=== PATIENT | male | born 1970 | race Hispanic/Latino ===

== ENCOUNTER 2017-08-20 13:50 | Emergency (ER) | payer OTHER | END 2017-08-20 14:53 | disposition home or self-care (01) | LOC: EDH 13:50 | DX: S46.812A Strain of other muscles, fascia and tendons at shoulder and upper arm level, left arm, initial encounter (principal); Z72.0 Tobacco use; W00.0XXA Fall on same level due to ice and snow, initial encounter; Y93.01 Activity, walking, marching and hiking; Y92.098 Other place in other non-institutional residence as the place of occurrence of the external cause; Y99.8 Other external cause status | CPT/HCPCS: 99281 ==

== ENCOUNTER 2017-09-23 10:43 | Emergency (ER) | payer OTHER ==
[2017-09-23] MEDS ORDERED: KETOROLAC TROMETHAMINE 60 MG/2 ML VIAL ONE (11:33)
[2017-09-23] MEDS ORDERED: DEXAMETHASONE SOD PHOSPHATE 10MG/ML 1ML VIAL ONE (11:33)
[2017-09-23] MEDS ORDERED: MORPHINE SULFATE 4 MG/1ML SYG ONE (13:11)
[2017-09-23] MEDS ORDERED: MORPHINE SULFATE 2 MG/ML 1ML SYG ONE (13:11)
== END 2017-09-23 14:09 | disposition home or self-care (01) ==
LOC: EDH 10:43
DX: M62.830 Muscle spasm of back (principal); M54.5 Low back pain; Z72.0 Tobacco use
CPT/HCPCS: 72100; 96372 ×3; 99284; J1100; J1885; J2270

== ENCOUNTER → 2018-04-14 | Outpatient (CLI) | payer OTHER | END | disposition home or self-care (01) | LOC: OIH 10:42 | PROVIDERS: ATTEND Internal Medicine | DX: S43.005A Unspecified dislocation of left shoulder joint, initial encounter (principal) | CPT/HCPCS: 73030 ==

== ENCOUNTER 2020-05-29 22:25 | Inpatient (IN) | payer OTHER ==
[~2020-05-29] VITALS: Ht 170.2 cm; Wt 104.3 kg
[2020-05-29] MEDS ORDERED: KETOROLAC TROMETHAMINE 30MG/ML ONE (22:56)
[2020-05-29] MEDS ORDERED: ZOSYN 3.375GM+NS 50ML 50 ML IV ONE (22:56)
[2020-05-29] MEDS ORDERED: LACTATED RINGERS 1000ML 1,000 ML IV ONE (22:56)
[2020-05-29] MEDS ORDERED: ONDANSETRON HCL 4 MG/2 ML VIAL ONE (22:59)
[2020-05-29 23:25] LABS: BASOPHILS % (AUTO) 0.8 % (0.0-5.0); EOSINOPHILS % (AUTO) 1.9 % (0.0-8.0); MEAN CORPUSCULAR HEMOGLOBIN 28.6 pg (27.0-33.0); MEAN CORPUSCULAR HGB CONC 33.8 g/dL (32.0-36.0); MEAN CORPUSCULAR VOLUME 84.7 fL (79-99); NEUTROPHILS % (AUTO) 73.8 % (40.0-77.0); PLATELET COUNT (AUTO) 416 K/uL (130-400); RED BLOOD CELL COUNT(AUTO) 5.31 MIL/uL (4.50-6.20); RED CELL DISTRIBUTION WIDTH 15.9 % (11.0-15.5); WHITE BLOOD COUNT (AUTO) 21.3 K/uL (4.8-10.8)
[2020-05-29 23:50] LABS: CREATININE 0.9 mg/dL (0.5-1.5); POTASSIUM 4.1 mmol/L (3.5-5.1)
[2020-05-29 23:51] LABS: APPEARANCE,URINE Clear (CLEAR); BILIRUBIN,URINE Negative (NEGATIVE); COLOR,URINE Yellow (YELLOW); GLUCOSE, URINE (UA) Negative (NEGATIVE); KETONES,URINE Negative (NEGATIVE); LEUKOCYTE ESTERASE ,URINE Negative (NEGATIVE); NITRATE,URINE Negative (NEGATIVE); OCCULT BLOOD,URINE Negative (NEGATIVE); PH,URINE 6.5 (5.0-8.0); PROTEIN,URINE POS 2+ mg/dL (NEGATIVE)
[2020-05-29 23:55] LABS: ALBUMIN 3.2 g/dL (3.5-5.0); BILIRUBIN,TOTAL 0.4 mg/dL (0.2-1.0); TOTAL PROTEIN, SERUM 7.3 g/dL (6.0-8.3)
[2020-05-30 00:01] LABS: BACTERIA,URINE None Seen /HPF (None Seen); RBC,URINE None Seen /HPF (0-1); SQUAMOUS EPITHELIAL CELL,UR Rare /HPF (0-2); WBC,URINE None Seen /HPF (0-1)
[2020-05-30] MEDS ORDERED: LIDOCAINE HCL 1% 20 ML VIAL ONE (00:39)
[2020-05-30] MEDS ORDERED: MORPHINE SULFATE 4 MG/1ML SYG ONE ×2 (00:39→05:11)
[2020-05-30] MEDS ORDERED: VANCOMYCIN 1GM+NS 250ML 250 ML IV ONE (01:54)
[2020-05-30] MEDS ORDERED: ACETAMINOPHEN EXTRA STRENGTH 500 MG TABLET ONE (01:54)
[2020-05-30] MEDS ORDERED: VANCOMYCIN PROTOCOL PER PHARMACY IV SCH (05:00)
[2020-05-30] MEDS ORDERED: ONDANSETRON HCL 4 MG/2 ML VIAL ONE (05:11)
[2020-05-30] MEDS ORDERED: ZOSYN 3.375GM+NS 50ML 50 ML IV SCH (06:00)
[2020-05-30] MEDS ORDERED: ZOSYN 3.375GM+NS 50ML 50 ML IV ONE (07:30)
[2020-05-30 08:56] LABS: BASOPHILS % (AUTO) 0.9 % (0.0-5.0); EOSINOPHILS % (AUTO) 2.2 % (0.0-8.0); HEMATOCRIT 42.3 % (42-54); LYMPHOCYTES % (AUTO) 15.5 % (21.0-51.0); MEAN CORPUSCULAR HEMOGLOBIN 28.7 pg (27.0-33.0); MEAN CORPUSCULAR HGB CONC 33.6 g/dL (32.0-36.0); MEAN CORPUSCULAR VOLUME 85.5 fL (79-99); MONOCYTES % (AUTO) 10.9 % (3.0-13.0); NEUTROPHILS % (AUTO) 69.9 % (40.0-77.0); PLATELET COUNT (AUTO) 399 K/uL (130-400); RED BLOOD CELL COUNT(AUTO) 4.95 MIL/uL (4.50-6.20); WHITE BLOOD COUNT (AUTO) 20.1 K/uL (4.8-10.8)
[2020-05-30 09:08] LABS: ALBUMIN 2.9 g/dL (3.5-5.0); BILIRUBIN,TOTAL 0.8 mg/dL (0.2-1.0); CREATININE 0.9 mg/dL (0.5-1.5); POTASSIUM 3.9 mmol/L (3.5-5.1); TOTAL PROTEIN, SERUM 6.6 g/dL (6.0-8.3)
[2020-05-30 11:20] VITALS: BP 124/89
[2020-05-30] MEDS: MORPHINE SULFATE 4 MG/1ML SYG IVP PRN ×2 (11:33→15:38)
[2020-05-30] MEDS: ONDANSETRON HCL 4 MG/2 ML VIAL IVP PRN ×2 (11:42→17:29)
[2020-05-30] MEDS ORDERED: PNEUMOCOCCAL VACCINE POLYVALENT 0.5 ML/VIAL [PPV] IM ONE (13:30)
[2020-05-30] MEDS ORDERED: FLU VACC QS2020-21(6MOS UP)/PF 60 MCG/0.5 ML ML IM ONE ×2 (13:30→17:20)
[2020-05-30] MEDS ORDERED: COMPOUND IV REFRIGERATED 1 EACH IVSOLN MISC PRN (15:00)
[2020-05-30] MEDS: VANCOMYCIN 1.5 GM in SODIUM CHLORIDE 0.9% 250 ML IV SCH (15:27)
[2020-05-30] MEDS: ZOSYN 3.375GM+NS 50ML 50 ML IV SCH (16:58)
[2020-05-30] MEDS ORDERED: PNEUMOCOCCAL VACCINE POLYVALENT 0.5 ML/VIAL [PPV] ONE (17:20)
[2020-05-30 17:24] VITALS: BP 150/106
[2020-05-30] MEDS ORDERED: MORPHINE SULFATE 2 MG/ML 1ML SYG ONE (18:00)
[2020-05-30] MEDS ORDERED: KETOROLAC TROMETHAMINE 30MG/ML IV SCH (19:00)
[2020-05-30] MEDS ORDERED: MORPHINE SULFATE 2 MG/ML 1ML SYG IVP ONE (19:15)
[2020-05-30 20:00] VITALS: BP 134/83
--- NOTE | 2020-05-30 20:30 | NUR ---
PAIN SHIFT ASSESSMENT DONE, PLEASE REFER TO CHART. DUE PAIN MEDS ADMINISTERED, TOLERATED WELL. PT REQUESTED TO SHOWER. PCP WAS MADE AWARE TO ASSIST PT. WILL RE-ASSESS PT. Addendum: 05/30/20 at 2148 by RAYMOND TURNER RN RN Amended: Links added.
--- NOTE | 2020-05-30 21:15 | NUR ---
PAIN PT IS DONE WITH HIS SHOWER AND CLAIMS OF SCROTAL PAINS AND HYPOGASTRIC PAINS. ASSISTED PT TO THE BED. ELEVATED SCROTUM WITH A ROLLED TOWEL. DRESSING OF GAUZE APPLIED TO ULCER AREA. MEDICATED WITH MORPHINE IV 4MG. WARM PACKS APPLIED TO SCROTAL AREA. WILL RE-ASSESS PT.
[2020-05-30] MEDS: MORPHINE SULFATE 4 MG/1ML SYG IV PRN (21:16)
[2020-05-30] MEDS: KETOROLAC TROMETHAMINE 10 MG TABLET PO SCH (22:57)
[2020-05-30 23:57] VITALS: BP 135/88
[2020-05-31] MEDS: ZOSYN 3.375GM+NS 50ML 50 ML IV SCH ×4 (00:34→23:42)
[2020-05-31] MEDS: VANCOMYCIN 1.5 GM in SODIUM CHLORIDE 0.9% 250 ML IV SCH ×2 (02:00→14:00)
[2020-05-31] MEDS ORDERED: VANCOMYCIN 1GM+NS 250ML 250 ML IV ONE ×2 (02:25→05:22)
--- NOTE | 2020-05-31 02:25 | NUR ---
MEDS PT IS RESTING WELL, FAIRLY ASLEEP. JOURNEYMAN LINEMAN UNABLE TO FIND VANCO DOSE IN THE REFRIGERATORS ON THE FLOOR. VANCO DOSE =1.5GM IV. JOURNEYMAN LINEMAN TRIED TO FIND 500MG VANCO IV TO ADD TO 1GM IV TO COMPLETE DOSE BUT NONE FOUND IN THE HOSPITAL. JOURNEYMAN LINEMAN WILL INFUSE 1 1/2 GM OF HOSPITAL STOCK TO COMPLETE PT DOSE, WASTING 500MG VANCO STOCK.
[2020-05-31 04:00] VITALS: BP 134/82
[2020-05-31] MEDS: KETOROLAC TROMETHAMINE 10 MG TABLET PO SCH ×3 (04:43→16:35)
--- NOTE | 2020-05-31 06:00 | NUR ---
MD DR KHOURY IN TO SEE PT. NEW ORDERS GIVEN, PLEASE REFER TO CPOE. FOR MORE CARE AND MANAGEMENT.
[2020-05-31 08:00] VITALS: BP 149/79
[2020-05-31] MEDS: MORPHINE SULFATE 4 MG/1ML SYG IV PRN ×4 (08:40→23:42)
[2020-05-31] MEDS: ALPRAZOLAM 0.5 MG TABLET PO PRN ×3 (09:00→22:57)
--- NOTE | 2020-05-31 11:06 | NUR ---
RD NOTIFICATION Pt admitted due to left scrotal abscess/cellulitis Pt is currently on a regular diet and consuming 100%. Pt's current BMI is of 36.0 and 155% IBW which are consistent with obesity. Unable to obtain recent weight loss information. Pt has hx of HTN, current BP is of 149/79, pt may benefit from a Heart Healthy modifier. RD RECOMMENDATION: Add modifier of heart healthy to current diet order Monitor PO intake. Pt may benefit from MVI. Dietary will continue to follow. Contact as nutritional concerns arise. LABS: WBC 20.1, NA 134, CL 101, TOT CA 8.2, ALB 2.9, TOT PRO 6.6 Addendum: 05/31/20 at [address] Amended: Links added.
--- NOTE | 2020-05-31 11:46 | NUR ---
[facility] CM DC [employer] Professor met with pt discussed dc plans. Pt is independent prior to admission, lives at home with spouse. Denies any equipment/services. Feels safe to go back home, still drives, spouse able to assist with transportation and needs as necessary. DC plan to home once stable. CM to continue to follow up. Addendum: 05/31/20 at 1147 by RADHA SEWELL LVN Amended: Links added.
[2020-05-31 12:00] VITALS: BP 143/94
[2020-05-31 13:08] LABS: BASOPHILS % (AUTO) 0.8 % (0.0-5.0); EOSINOPHILS % (AUTO) 3.3 % (0.0-8.0); HEMATOCRIT 40.5 % (42-54); LYMPHOCYTES % (AUTO) 17.6 % (21.0-51.0); MEAN CORPUSCULAR HEMOGLOBIN 28.7 pg (27.0-33.0); MEAN CORPUSCULAR HGB CONC 33.3 g/dL (32.0-36.0); MONOCYTES % (AUTO) 8.5 % (3.0-13.0); NEUTROPHILS % (AUTO) 69.4 % (40.0-77.0); PLATELET COUNT (AUTO) 362 K/uL (130-400); RED BLOOD CELL COUNT(AUTO) 4.71 MIL/uL (4.50-6.20); RED CELL DISTRIBUTION WIDTH 15.9 % (11.0-15.5); WHITE BLOOD COUNT (AUTO) 14.4 K/uL (4.8-10.8)
[2020-05-31 16:00] VITALS: BP 149/96
--- NOTE | 2020-05-31 16:41 | NUR ---
[id number] PATIENT SIGNED IM LETTER, I FAXED IM LETTER TO [id number] AND PLACED IN CHART UNDER CONSENT TAB
[2020-05-31 20:00] VITALS: BP 145/90
[2020-06-01] VITALS: BP 121/80
[2020-06-01] MEDS: VANCOMYCIN 1.5 GM in SODIUM CHLORIDE 0.9% 250 ML IV SCH ×2 (02:23→14:22)
[2020-06-01 04:00] VITALS: BP 142/97
[2020-06-01 06:19] LABS: HEMATOCRIT 42.1 % (42-54); MEAN CORPUSCULAR HEMOGLOBIN 28.8 pg (27.0-33.0); MEAN CORPUSCULAR HGB CONC 33.5 g/dL (32.0-36.0); MEAN CORPUSCULAR VOLUME 86.1 fL (79-99); RED BLOOD CELL COUNT(AUTO) 4.89 MIL/uL (4.50-6.20); RED CELL DISTRIBUTION WIDTH 15.9 % (11.0-15.5); WHITE BLOOD COUNT (AUTO) 12.9 K/uL (4.8-10.8)
[2020-06-01 06:33] LABS: CREATININE 0.9 mg/dL (0.5-1.5); POTASSIUM 4.2 mmol/L (3.5-5.1)
[2020-06-01] MEDS: ZOSYN 3.375GM+NS 50ML 50 ML IV SCH ×3 (08:10→23:36)
[2020-06-01] MEDS: MORPHINE SULFATE 4 MG/1ML SYG IV PRN ×4 (08:10→23:47)
[2020-06-01] MEDS: ALPRAZOLAM 0.5 MG TABLET PO PRN ×2 (08:16→20:50)
[2020-06-01 08:37] VITALS: BP 146/101
[2020-06-01 12:15] VITALS: BP 117/71
[2020-06-01] MEDS: ONDANSETRON HCL 4 MG/2 ML VIAL IVP PRN (14:22)
[2020-06-01 19:45] VITALS: BP 135/77
[2020-06-01] MEDS: MORPHINE SULFATE 2 MG/ML 1ML SYG IVP PRN (20:44)
[2020-06-01 23:44] VITALS: BP 146/91
[2020-06-02] MEDS: VANCOMYCIN 1.5 GM in SODIUM CHLORIDE 0.9% 250 ML IV SCH ×2 (02:00→14:23)
[2020-06-02 04:00] VITALS: BP 156/88
[2020-06-02] MEDS: ALPRAZOLAM 0.5 MG TABLET PO PRN ×3 (05:04→21:19)
[2020-06-02 05:53] LABS: BASOPHILS % (AUTO) 0.9 % (0.0-5.0); HEMATOCRIT 42.4 % (42-54); LYMPHOCYTES % (AUTO) 20.9 % (21.0-51.0); MEAN CORPUSCULAR HEMOGLOBIN 28.4 pg (27.0-33.0); MEAN CORPUSCULAR HGB CONC 32.8 g/dL (32.0-36.0); MEAN CORPUSCULAR VOLUME 86.7 fL (79-99); MONOCYTES % (AUTO) 10.9 % (3.0-13.0); NEUTROPHILS % (AUTO) 61.9 % (40.0-77.0); PLATELET COUNT (AUTO) 439 K/uL (130-400); RED BLOOD CELL COUNT(AUTO) 4.89 MIL/uL (4.50-6.20); RED CELL DISTRIBUTION WIDTH 15.7 % (11.0-15.5); WHITE BLOOD COUNT (AUTO) 13.9 K/uL (4.8-10.8)
[2020-06-02 06:19] LABS: ALBUMIN 2.6 g/dL (3.5-5.0); BILIRUBIN,TOTAL 0.4 mg/dL (0.2-1.0); CREATININE 0.9 mg/dL (0.5-1.5); POTASSIUM 4.1 mmol/L (3.5-5.1); TOTAL PROTEIN, SERUM 6.7 g/dL (6.0-8.3)
[2020-06-02] MEDS: ZOSYN 3.375GM+NS 50ML 50 ML IV SCH ×2 (06:53→16:34)
[2020-06-02] MEDS: MORPHINE SULFATE 4 MG/1ML SYG IV PRN ×4 (07:02→20:46)
[2020-06-02 08:00] VITALS: BP 123/65
[2020-06-02 11:00] VITALS: BP 111/70
[2020-06-02 16:00] VITALS: BP 135/80
[2020-06-02 20:00] VITALS: BP 127/90
[2020-06-02] MEDS: VANCOMYCIN 1GM+NS 250ML 250 ML IV SCH (20:46)
--- NOTE | 2020-06-02 20:46 | NUR ---
PAIN Pt medicated with extra Morphine 2 mg iv for c/o of pain to scrotum. Addendum: 06/02/20 at 2339 by SERGIO TINOCO RN RN MORPINE 4 MG WAS GIVEN.
--- NOTE | 2020-06-02 21:19 | NUR ---
ANXIETY Xanax GIVEN for anxiety as per pt request.
--- NOTE | 2020-06-02 23:01 | NUR ---
PAGED MD Susan rich called re pt.s complaint of pain to scrotum,he said morphine did not work.Dr Olmos gave order for extra 2 mg of morphine.
[2020-06-02] MEDS ORDERED: MORPHINE SULFATE 2 MG/ML 1ML SYG IVP ONE (23:15)
--- NOTE | 2020-06-02 23:39 | NUR ---
PAIN Morphine 2 mg given as per Md order for constant pain to scrotum.Pt asking for a sandwich now.
[2020-06-03] VITALS: BP 122/88
--- NOTE | 2020-06-03 00:39 | NUR ---
MED EFFECT Pt asleep,arousable.
[2020-06-03] MEDS: ZOSYN 3.375GM+NS 50ML 50 ML IV SCH ×2 (00:59→08:30)
[2020-06-03] MEDS: MORPHINE SULFATE 4 MG/1ML SYG IV PRN (03:27)
--- NOTE | 2020-06-03 03:30 | NUR ---
PAIN Pt woke up and states he's in pain.Medicated ith Morphine.
[2020-06-03 03:36] VITALS: BP 123/92
[2020-06-03] MEDS: ALPRAZOLAM 0.5 MG TABLET PO PRN (05:25)
[2020-06-03] MEDS: VANCOMYCIN 1GM+NS 250ML 250 ML IV SCH (05:25)
[2020-06-03 05:57] LABS: BASOPHILS % (AUTO) 1.2 % (0.0-5.0); EOSINOPHILS % (AUTO) 4.9 % (0.0-8.0); HEMATOCRIT 42.7 % (42-54); LYMPHOCYTES % (AUTO) 20.1 % (21.0-51.0); MEAN CORPUSCULAR HEMOGLOBIN 28.4 pg (27.0-33.0); MEAN CORPUSCULAR HGB CONC 32.8 g/dL (32.0-36.0); MEAN CORPUSCULAR VOLUME 86.6 fL (79-99); MONOCYTES % (AUTO) 12.1 % (3.0-13.0); NEUTROPHILS % (AUTO) 61.4 % (40.0-77.0); PLATELET COUNT (AUTO) 454 K/uL (130-400); RED BLOOD CELL COUNT(AUTO) 4.93 MIL/uL (4.50-6.20); RED CELL DISTRIBUTION WIDTH 15.8 % (11.0-15.5); WHITE BLOOD COUNT (AUTO) 11.8 K/uL (4.8-10.8)
[2020-06-03 06:37] LABS: ALBUMIN 2.6 g/dL (3.5-5.0); BILIRUBIN,TOTAL 0.4 mg/dL (0.2-1.0); CREATININE 0.8 mg/dL (0.5-1.5); TOTAL PROTEIN, SERUM 6.8 g/dL (6.0-8.3)
[2020-06-03] MEDS: MORPHINE SULFATE 2 MG/ML 1ML SYG IVP PRN (07:27)
[2020-06-03 07:59] VITALS: BP 149/93
--- NOTE | 2020-06-03 08:33 | NUR ---
DISCHARGE DISCHARGE INSTRUCTION GIVEN AND PATIENT VERBALIZED UNDERSTANDING, IV'S REMOVED WITH CATHETER INTACT AND SITES DRESSED, REVIEWED MEDICATIONS AND FOLLOW-UP APPOINTMENT , PATIENT WAS MEDICATIONED FOR PAIN AT OF 7 AT 0742 , PAIN NOW A 3, PRESCRIPTIONS FOR PAIN MEDICATION GIVEN AND PATIENT WILL HAVE IT FILLED ON HIS WAY HOME. NO QUESTIONS OR CONCERNS AT THIS TIME WAITING FOR RIDE
== END 2020-06-03 08:45 | disposition home or self-care (01) | DRG 728 ==
LOC: EDH 22:25 → OBSVTOIN 05-30 02:17 → EDHIP 05-30 02:17 → 3BH 05-30 11:00
PROVIDERS: ADMIT Internal Medicine; ATTEND Internal Medicine
PROC: 3E02340 Introduction of Influenza Vaccine into Muscle, Percutaneous Approach (ICD-10-PCS; principal; 2020-05-30)
PROC: 3E0234Z Introduction of Serum, Toxoid and Vaccine into Muscle, Percutaneous Approach (ICD-10-PCS; 2020-05-30)
DX: N45.3 Epididymo-orchitis (principal); M19.90 Unspecified osteoarthritis, unspecified site; F17.200 Nicotine dependence, unspecified, uncomplicated; F32.9 Major depressive disorder, single episode, unspecified; I10 Essential (primary) hypertension; I86.1 Scrotal varices; G89.29 Other chronic pain; M54.2 Cervicalgia; F41.9 Anxiety disorder, unspecified; Z86.73 Personal history of transient ischemic attack (TIA), and cerebral infarction without residual deficits; Z90.81 Acquired absence of spleen; Z90.49 Acquired absence of other specified parts of digestive tract; Z87.828 Personal history of other (healed) physical injury and trauma; Z23 Encounter for immunization
CPT/HCPCS: 36415; 76870; 80048; 80053; 80202; 81001; 83605; 85025; 85027; 87070; 87076; 87077; 87186; 90732; G0378; J1885; J2270; J2405; J2543; J3370; J7050; J7120; Q2035

== ENCOUNTER → 2020-08-13 | Outpatient (CLI) | payer OTHER | END | disposition home or self-care (01) | LOC: OIH 09:38 | PROVIDERS: ATTEND Internal Medicine | DX: J84.9 Interstitial pulmonary disease, unspecified (principal); R06.2 Wheezing; M47.815 Spondylosis without myelopathy or radiculopathy, thoracolumbar region | CPT/HCPCS: 71046 ==

== ENCOUNTER 2025-05-16 15:00 | Emergency (ER) | payer OTHER ==
[~2025-05-16] VITALS: Ht 170.2 cm; Wt 127.0 kg
[~2025-05-16 15:00] MED LIST: AEC81 PO; ALPR2TAB2 PO; ATOR20TA65 PO; LEVE-43 PO; LISI1TAB51 PO; METF-444 PO; METO25TA6 PO
[2025-05-16 15:03] VITALS: TEMP 98.5
[2025-05-16 16:11] LABS: IMMATURE GRANULOCYTE ABSOLUTE 0.06 K/uL (0-1); NUCLEATED RED BLOOD CELLS 0.0 % (0.0-0.19); PLATELET COUNT (AUTO) 362 K/uL (130-400); RED BLOOD CELL COUNT(AUTO) 4.59 MIL/uL (4.50-6.20); RED CELL DISTRIBUTION WIDTH 17.3 % (11.0-15.5); WHITE BLOOD COUNT (AUTO) 10.6 K/uL (4.8-10.8)
[2025-05-16 16:36] LABS: ASPARTATE AMINOTRANSFERASE 22.0 U/L (10-37); CREATINE KINASE, TOTAL 227.0 U/L (21-232); CREATININE 2.1 mg/dL (0.5-1.3); GLOMERULAR FILTR. RATE CALC 37.0 mL/min (>90); GLUCOSE,RANDOM 82.0 mg/dL (70-105); SODIUM SERUM 139.0 mmol/L (136-145); TOTAL PROTEIN, SERUM 7.5 g/dL (6.0-8.3); UREA NITROGEN, BLOOD 71.0 mg/dL (7-18)
[2025-05-16 16:56] LABS: APPEARANCE,URINE CLEAR (CLEAR); GLUCOSE, URINE (UA) NEGATIVE (NEGATIVE); LEUKOCYTE ESTERASE ,URINE NEGATIVE Leu/uL (NEGATIVE); NITRATE,URINE NEGATIVE (NEGATIVE); OCCULT BLOOD,URINE NEGATIVE (NEGATIVE)
[2025-05-16] MEDS: 0.9%NACL 1000ML 1,000 ML IV ONE (17:01)
[2025-05-16 17:03] LABS: ADD UA MICROSCOPIC NO
[2025-05-16 17:05] LABS: AMPHET/METH SCREEN,URINE NEGATIVE (NEGATIVE); BARBITURATE SCREEN, URINE NEGATIVE (NEGATIVE); CANNABINOID SCREEN,URINE POSITIVE (NEGATIVE); COCAINE SCREEN,URINE POSITIVE (NEGATIVE)
[2025-05-16 17:11] VITALS: BP 96/62; PULSE 53; RESP 16; O2SAT 98
--- NOTE | 2025-05-16 17:33 | HMCIMG ---
EXAM: CR Chest, 1 View. CLINICAL HISTORY: [facility] COMPARISON: None provided. FINDINGS: LUNGS: The lungs show no infiltrate or other acute finding. PLEURAL SPACES: No evidence of pleural effusion or pneumothorax. MEDIASTINUM: The cardiomediastinal silhouette is within normal limits. Changes of median sternotomy BONES: No acute osseous abnormality. IMPRESSION: No acute cardiopulmonary pathology is evident. /[place]
--- NOTE | 2025-05-16 17:51 | EKG ---
[facility] Test Date: 2025-05-16 Test Time: 17:14:09 Pat Name: DEANNA HAGAN Department: ED Room: Gender: M C Wpf Developer: [id number] : 1970 Requested By: HANNA PERALES Order Number: [id number] Reading MD: Onofre Marie Measurements Intervals [place] Rate: 56 P: 64 MN: 140 QRS: 25 QRSD: 146 T: 30 QT: 470 QTc: 455 Interpretive Statements Sinus rhythm Right bundle branch block Compared to ECG 04/08/2024 12:26:08 Right bundle-branch block now present Myocardial infarct finding no longer present Electronically Signed On 05-17-2025 16:10:37 CDT by Onofre Marie Please click the below link to view image of tracing.
--- NOTE | 2025-05-16 18:30 | ERN ---
ED Note History of Present Illness Stated Complaint: WEAKNESS Chief Complaint: Weakness Time Seen by MD: 15:09 Dictation: 54-year-old male presenting to the emergency department with generalized weakness and body aches patient was picked up by EMS and transported in stable condition patient reports he has got pain and also doing street drugs Allergies: Coded Allergies: No Known Drug Allergies (Verified Allergy, Unknown, 05/30/20) Home Meds Active Scripts Levetiracetam (Keppra) 500 Mg Tablet, 500 MG PO BID for 30 Days, #60 TAB 0 Refills Prov:JOSE VANG MD 04/10/24 Reported Medications Metformin HCl (Metformin HCl) 500 Mg Tablet, 500 MG PO BID, TAB 04/09/24 Alprazolam (Xanax) 2 Mg Tablet, 2 MG PO QIDP PRN for ANXIETY/AGITATION, TAB 04/09/24 Metoprolol Tartrate (Metoprolol Tartrate) 25 Mg Tablet, 12.5 MG PO BID, TAB 04/09/24 Atorvastatin Calcium (Atorvastatin Calcium) 20 Mg Tablet, 20 MG PO DAILY, TAB 04/09/24 Aspirin (ASPIRIN 81 MG ECTAB) 81 Mg Ectab, 81 MG PO DAILY, TAB.EC 04/09/24 Lisinopril/Hydrochlorothiazide (Lisinopril-Hctz 20-12.5 mg Tab) 20 Mg-12.5 Mg Tablet, 1 EACH PO DAILY, TAB 04/09/24 Past Medical History Past Medical History: Diabetes-Type II, High Cholesterol, Hypertension Surgical History: CABG Review of System Dictation Constitutional: Negative for fever,chills, and weight loss Eyes: Negative for injury, pain,redness, and discharge ENT: Negative for injury,pain or swelling Cardiovascular: Negative for chest pain, palpitations, and edema Respiratory: Negative for shortness of breath, cough, and wheezing, Abdomen/GI: Per HPI : Negative for injury, bleeding and discharge MS/Extremity: Negative for injury and deformity Skin: Negative for rash, and discoloration Neuro: Per HPI Initial Vital Sign VS Vital Signs Date Time Temp Pulse Resp B/P (MAP) Pulse Ox O2 Delivery O2 Flow Rate FiO2 05/16/25 15:03 98.4 91 18 91/62 99 Room Air 0 05/16/25 17:11 21 Physical Exam Dictation General: awake, alert, NAD Head/Face: Normocephalic, atraumatic Eyes: PERRL, EOMI, vision at baseline ENT: oral cavity clear, TMs clear, no signs of infection Neck: Trachea midline, supple, no nuchal rigidity Cardiovascular: RRR, normal S1/S2, No MRGs, no JVD Respiratory: CTAB, no respiratory distress, No rales or wheezes Abdomen: Soft, non-tender, non-distended, normal bowel sounds, no guarding or rebound. Skin: Warm, dry, normal turgor, no rash MS/Extremity: Pulses equal, no cyanosis, neurovascular intact, FROM Neuro: COAx4, GCS 15, strength 5/5, CN 2-12 intact, normal cerebellar exam, normal gait, Psych: Normal behavior, mood, and affect normal Results (Laboratory/Radiology) Laboratory/Radiology Laboratory Tests Test 05/16/25 16:04 05/16/25 16:40 White Blood Count 10.6 K/uL (4.8-10.8) Red Blood Count 4.59 MIL/uL (4.50-6.20) Hemoglobin 14.0 g/dL (14.0-18.0) Hematocrit 42.1 % (42-54) Mean Corpuscular Volume 91.7 fL (79-99) Mean Corpuscular Hemoglobin 30.5 pg (27.0-33.0) Mean Corpuscular Hemoglobin Concent 33.3 g/dL (32.0-36.0) Red Cell Distribution Width 17.3 % (11.0-15.5) H Platelet Count 362 K/uL (130-400) Mean Platelet Volume 9.9 fL (7.5-10.5) Immature Granulocyte % (Auto) 0.6 % (0-1) Neutrophils (%) (Auto) 56.5 % (40.0-77.0) Lymphocytes (%) (Auto) 26.1 % (21.0-51.0) Monocytes (%) (Auto) 11.9 % (3.0-13.0) Eosinophils (%) (Auto) 4.0 % (0.0-8.0) Basophils (%) (Auto) 0.9 % (0.0-5.0) Neutrophils # (Auto) 6.0 K/uL (1.8-7.7) Lymphocytes # (Auto) 2.8 K/uL (1.0-4.8) Monocytes # (Auto) 1.3 K/uL (0.1-1.0) H Eosinophils # (Auto) 0.42 K/uL (0.00-0.70) Basophils # (Auto) 0.10 K/uL (0.00-0.20) Absolute Immature Granulocyte (auto 0.06 K/uL (0-1) Nucleated Red Blood Cells 0.0 % (0.0-0.19) Sodium Level 139 mmol/L (136-145) Potassium Level 5.1 mmol/L (3.5-5.1) Chloride Level 107 mmol/L (101-111) Carbon Dioxide Level 23 mmol/L (21-32) Blood Urea Nitrogen 71 mg/dL (7-18) H Creatinine 2.1 mg/dL (0.5-1.3) H Glomerular Filtration Rate Calc 37 mL/min (>90) Random Glucose 82 mg/dL (70-105) Lactic Acid Level 2.2 mmol/L (0.8-2.5) Total Calcium 8.2 mg/dL (8.5-10.1) L Total Bilirubin 0.2 mg/dL (0.2-1.0) Direct Bilirubin 0.1 mg/dL (0.0-0.3) Aspartate Amino Transf (AST/SGOT) 22 U/L (10-37) Alanine Aminotransferase (ALT/SGPT) 27 U/L (12-78) Alkaline Phosphatase 67 U/L (50-136) Total Creatine Kinase 227 U/L (21-232) Troponin I High Sensitivity 5 ng/L (4-75) Total Protein 7.5 g/dL (6.0-8.3) Albumin 3.2 g/dL (3.5-5.0) L Urine Color LIGHT-YELLOW (YELLOW) Urine Appearance CLEAR (CLEAR) Urine pH 5.5 (5.0-8.0) Urine Specific [place] 1.020 (1.001-1.031) Urine Protein NEGATIVE mg/dL (NEGATIVE) Urine Glucose (UA) NEGATIVE mg/dL (NEGATIVE) Urine Ketones NEGATIVE mg/dL (NEGATIVE) Urine Occult Blood NEGATIVE (NEGATIVE) Urine Nitrate NEGATIVE (NEGATIVE) Urine Bilirubin NEGATIVE mg/dL (NEGATIVE) Urine Urobilinogen 0.2 mg/dL (0.2-1.0) Urine Leukocyte Esterase NEGATIVE Gaye/uL Urine Opiates Screen NEGATIVE (NEGATIVE) Urine Barbiturates Screen NEGATIVE (NEGATIVE) Urine Phencyclidine Screen NEGATIVE (NEGATIVE) Urine Amphetamines Screen NEGATIVE (NEGATIVE) Urine Benzodiazepines Screen POSITIVE (NEGATIVE) H Urine Cocaine Screen POSITIVE (NEGATIVE) H Urine Marijuana (THC) Screen POSITIVE (NEGATIVE) H Labs Reviewed?: Yes EKG Comment: Heart rate 56 normal sinus rhythm, normal intervals ED Course ED Course Orders Procedure Category Date Status Time 12 Lead Ekg Tracing- EKG 05/16/25 Complete Technical 15:44 Basic Metabolic Panel LAB 05/16/25 Complete 15:44 Blood Cult HIRAM 05/16/25 In Process 15:44 Cbc With Differential LAB 05/16/25 Complete 15:44 Hepatic Function Panel LAB 05/16/25 Complete 15:44 Creatine Kinase, Total LAB 05/16/25 Complete 15:44 Drug Screen Urine LAB 05/16/25 Complete 15:44 Lactic Acid LAB 05/16/25 Complete 15:44 Troponin I High LAB 05/16/25 Complete Sensitivity 15:44 Urinalysis Profile LAB 05/16/25 Complete 15:44 Chest 1vw RAD 05/16/25 Resulted 15:44 Ceftriaxone 2gm Vial PHA 05/16/25 Complete (Rocephin 2gm Inj) 15:44 0.9%Nacl 1000ml (Ns PHA 05/16/25 Complete 1000ml) 16:00 Current Medications Medications (Trade) Dose Ordered Sig/Melly Route PRN Reason Start Time Stop Time Status Last Admin Dose Admin Ceftriaxone Sodium (Rocephin 2gm Inj) 2 gm ONCE STAT IVPB 05/16/25 15:44 05/16/25 15:46 DC 05/16/25 17:00 Sodium Chloride 1,000 ml @ 0 mls/hr ONCE ONCE IV 05/16/25 16:00 05/16/25 16:01 DC 05/16/25 17:01 Vital Signs Date Time Temp Pulse Resp B/P (MAP) Pulse Ox O2 Delivery O2 Flow Rate FiO2 05/16/25 17:11 53 16 96/62 98 Room Air* 0 21 05/16/25 15:03 98.4 91 18 91/62 99 Room Air 0 Medical Decision Making MDM MDM: Differential diagnosis: Rationale: Tests considered and ordered secondary to shared decision making include: Previous outside records reviewed: Old ER visits. Risk of complication and/or morbidity or mortality of patient management: None Medications-Per medication reconciliation Need for hospitalization: Patient does not meet criteria for hospitalization. Need for emergency major/minor surgery: No There are no social concerns with this patient. Prescription drug management Prescriptions will include symptomatic care Patient's prior external medical records from other ER visits were reviewed by me as indicated. Prior testing and results from previous visits were reviewed. Prior tests were taken into account with medical decision making and resource utilization, independent historian/historians were used to obtain complete medical history. I independently interpreted the test that were performed, results were reviewed by me and considered findings on radiology if ordered. Medical management and examination interpretation discussions were had by me with other qualified healthcare professionals as indicated for the patient's care. Patient left before results and disposition plan DX & DISP Disposition: AMA Departure Impression: Primary Impression: Alcohol abuse Additional Impressions: Cocaine abuse, Weakness Condition: Against Medical Advice Referrals: LAUREN MCKEE MD (PCP) HANNA PERALES MD May 16, 2025 18:30
== END 2025-05-16 17:49 | disposition left against medical advice (07) ==
LOC: EDH 15:00
DX: F10.10 Alcohol abuse, uncomplicated (principal); F14.10 Cocaine abuse, uncomplicated; R53.1 Weakness; E11.9 Type 2 diabetes mellitus without complications; E78.00 Pure hypercholesterolemia, unspecified; I10 Essential (primary) hypertension; Z79.82 Long term (current) use of aspirin; Z79.84 Long term (current) use of oral hypoglycemic drugs; Z79.899 Other long term (current) drug therapy; Z95.1 Presence of aortocoronary bypass graft; Y90.9 Presence of alcohol in blood, level not specified
CPT/HCPCS: 99285; 96365; 71045; 82550; 80076; 84484; 80048; 80305; 85025; 87040 ×2; 82948; 83605; 81003; 36415; 93005; J7030; J0696

== ENCOUNTER 2025-05-18 00:55 | Emergency (ER) | payer OTHER ==
[~2025-05-18] VITALS: Ht 170.2 cm; Wt 81.6 kg
[2025-05-18 01:18] LABS: IMMATURE GRANULOCYTE ABSOLUTE 0.03 K/uL (0-1); NUCLEATED RED BLOOD CELLS 0.0 % (0.0-0.19); PLATELET COUNT (AUTO) 336 K/uL (130-400); RED BLOOD CELL COUNT(AUTO) 4.20 MIL/uL (4.50-6.20); RED CELL DISTRIBUTION WIDTH 16.6 % (11.0-15.5); WHITE BLOOD COUNT (AUTO) 8.5 K/uL (4.8-10.8)
[2025-05-18 01:27] LABS: CREATININE 1.1 mg/dL (0.5-1.3); GLOMERULAR FILTR. RATE CALC 80.0 mL/min (>90); GLUCOSE,RANDOM 99.0 mg/dL (70-105); SODIUM SERUM 145.0 mmol/L (136-145); UREA NITROGEN, BLOOD 24.0 mg/dL (7-18)
[2025-05-18 01:28] LABS: ALCOHOL, BLOOD 52.0 mg/dL (0-10)
--- NOTE | 2025-05-18 01:44 | ERN ---
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 Patient also stated that he was drink beers prior come to the hospital, stated that he drinks 2 cans of beers far. Patient denies fever, chills, chest pain. Allergies: Coded Allergies: No Known Drug Allergies (Verified Allergy, Unknown, 05/30/20) Home Meds Active Scripts Levetiracetam (Keppra) 500 Mg Tablet, 500 MG PO BID for 30 Days, #60 TAB 0 Refills Prov:JOSE VANG MD 04/10/24 Reported Medications Metformin HCl (Metformin HCl) 500 Mg Tablet, 500 MG PO BID, TAB 04/09/24 Alprazolam (Xanax) 2 Mg Tablet, 2 MG PO QIDP PRN for ANXIETY/AGITATION, TAB 04/09/24 Metoprolol Tartrate (Metoprolol Tartrate) 25 Mg Tablet, 12.5 MG PO BID, TAB 04/09/24 Atorvastatin Calcium (Atorvastatin Calcium) 20 Mg Tablet, 20 MG PO DAILY, TAB 04/09/24 Aspirin (ASPIRIN 81 MG ECTAB) 81 Mg Ectab, 81 MG PO DAILY, TAB.EC 04/09/24 Lisinopril/Hydrochlorothiazide (Lisinopril-Hctz 20-12.5 mg Tab) 20 Mg-12.5 Mg Tablet, 1 EACH PO DAILY, TAB 04/09/24 Past Medical History Past Medical History: Diabetes-Type II, High Cholesterol, Hypertension Surgical History: CABG Review of System Dictation NEGATIVE EXCEPT PER HPI Constitutional: Negative for fever,chills, and weight loss Eyes: Burning eyes ENT: Negative for injury,pain or swelling Cardiovascular: denies chest pain, palpitations, and edema Respiratory: Negative for shortness of breath, cough, and wheezing, Abdomen/GI: Negative for abdominal pain, nausea, vomiting, diarrhea, and constipation Back: Negative for injury and pain : Negative for injury, bleeding and discharge MS/Extremity: Negative for injury and deformity Skin: Negative for rash, and discoloration Neuro: Negative for headache, weakness, numbness, tingling, and seizure Psych: Negative for suicide ideation, homicidal ideation, and hallucinations Initial Vital Sign VS Vital Signs Date Time Temp Pulse Resp B/P (MAP) Pulse Ox O2 Delivery O2 Flow Rate FiO2 05/18/25 00:56 98.1 85 16 151/97 96 Room Air 0 05/18/25 01:22 21 Physical Exam Dictation General: awake, alert, NAD Head/Face: Normocephalic, atraumatic Eyes: Burning bilateral. ENT: oral cavity clear, TMs clear, no signs of infection Neck: Trachea midline, supple, no nuchal rigidity Cardiovascular: RRR, normal S1/S2, No MRGs, no JVD Respiratory: CTAB, no respiratory distress, No rales or wheezes Abdomen: Soft , no tender Skin: Warm, dry, normal turgor, no rash MS/Extremity: Pulses equal, no cyanosis, neurovascular intact, FROM Neuro: COAx4, GCS 15, strength 5/5, CN 2-12 intact, normal cerebellar exam, normal gait, Psych: Normal behavior, mood, and affect normal Results (Laboratory/Radiology) Laboratory/Radiology Laboratory Tests Test 05/18/25 01:12 05/18/25 01:30 White Blood Count 8.5 K/uL (4.8-10.8) Red Blood Count 4.20 MIL/uL (4.50-6.20) L Hemoglobin 12.8 g/dL (14.0-18.0) L Hematocrit 38.0 % (42-54) L Mean Corpuscular Volume 90.5 fL (79-99) Mean Corpuscular Hemoglobin 30.5 pg (27.0-33.0) Mean Corpuscular Hemoglobin Concent 33.7 g/dL (32.0-36.0) Red Cell Distribution Width 16.6 % (11.0-15.5) H Platelet Count 336 K/uL (130-400) Mean Platelet Volume 9.5 fL (7.5-10.5) Immature Granulocyte % (Auto) 0.4 % (0-1) Neutrophils (%) (Auto) 37.1 % (40.0-77.0) L Lymphocytes (%) (Auto) 41.8 % (21.0-51.0) Monocytes (%) (Auto) 11.7 % (3.0-13.0) Eosinophils (%) (Auto) 7.5 % (0.0-8.0) Basophils (%) (Auto) 1.5 % (0.0-5.0) Neutrophils # (Auto) 3.1 K/uL (1.8-7.7) Lymphocytes # (Auto) 3.5 K/uL (1.0-4.8) Monocytes # (Auto) 1.0 K/uL (0.1-1.0) Eosinophils # (Auto) 0.63 K/uL (0.00-0.70) Basophils # (Auto) 0.13 K/uL (0.00-0.20) Absolute Immature Granulocyte (auto 0.03 K/uL (0-1) Nucleated Red Blood Cells 0.0 % (0.0-0.19) Sodium Level 145 mmol/L (136-145) Potassium Level 4.0 mmol/L (3.5-5.1) Chloride Level 109 mmol/L (101-111) Carbon Dioxide Level 25 mmol/L (21-32) Blood Urea Nitrogen 24 mg/dL (7-18) H Creatinine 1.1 mg/dL (0.5-1.3) Glomerular Filtration Rate Calc 80 mL/min (>90) Random Glucose 99 mg/dL (70-105) Total Calcium 7.8 mg/dL (8.5-10.1) L Troponin I High Sensitivity 6 ng/L (4-75) B-Type Natriuretic Peptide 65 pg/mL (0-100) Serum Alcohol 52 mg/dL (0-10) H Urine Color LIGHT-YELLOW (YELLOW) Urine Appearance CLEAR (CLEAR) Urine pH 5.5 (5.0-8.0) Urine Specific [place] 1.012 (1.001-1.031) Urine Protein NEGATIVE mg/dL (NEGATIVE) Urine Glucose (UA) NEGATIVE mg/dL (NEGATIVE) Urine Ketones NEGATIVE mg/dL (NEGATIVE) Urine Occult Blood NEGATIVE (NEGATIVE) Urine Nitrate NEGATIVE (NEGATIVE) Urine Bilirubin NEGATIVE mg/dL (NEGATIVE) Urine Urobilinogen 0.2 mg/dL (0.2-1.0) Urine Leukocyte Esterase NEGATIVE Gaye/uL Urine Opiates Screen NEGATIVE (NEGATIVE) Urine Barbiturates Screen NEGATIVE (NEGATIVE) Urine Phencyclidine Screen NEGATIVE (NEGATIVE) Urine Amphetamines Screen NEGATIVE (NEGATIVE) Urine Benzodiazepines Screen NEGATIVE (NEGATIVE) Urine Cocaine Screen POSITIVE (NEGATIVE) H Urine Marijuana (THC) Screen POSITIVE (NEGATIVE) H ED Course ED Course Orders Procedure Category Date Status Time Cbc With Differential LAB 05/18/25 Complete 01:02 Basic Metabolic Panel LAB 05/18/25 Complete 01:02 Alcohol, Blood LAB 05/18/25 Complete 01:02 0.9%Nacl 1000ml (Ns PHA 05/18/25 In Process 1000ml) 01:30 B-Type Natriuretic LAB 05/18/25 Complete Peptide 01:02 Troponin I High LAB 05/18/25 Complete Sensitivity 01:02 Tetracaine Hcl PHA 05/18/25 In Process (Pontocaine 0.5% 01:30 Fluorescein Sodium PHA 05/18/25 In Process (Juyne-P-Pldfw At) 01:30 Urinalysis Profile LAB 05/18/25 Complete 01:36 Drug Screen Urine LAB 05/18/25 Complete 01:36 Ketorolac PHA 05/18/25 Complete Tromethamine 02:30 Current Medications Medications (Trade) Dose Ordered Sig/Melly Route PRN Reason Start Time Stop Time Status Last Admin Dose Admin Fluorescein Sodium (Rkvmv-M-Lzjiw At) 2 strip ONCE OP 05/18/25 01:30 06/17/25 01:29 05/18/25 01:46 Ketorolac Tromethamine (ketOROlac troMETHamine) ONCE ONCE OP 05/18/25 02:30 05/18/25 02:31 DC 05/18/25 02:27 Sodium Chloride 1,000 ml @ 150 mls/hr Q6H40M IV 05/18/25 01:30 06/17/25 01:29 05/18/25 01:46 Tetracaine HCl (Pontocaine 0.5% Oph Soln) 1 OR 2 DROPS ONCE OP 05/18/25 01:30 06/17/25 01:29 05/18/25 01:46 Vital Signs Date Time Temp Pulse Resp B/P (MAP) Pulse Ox O2 Delivery O2 Flow Rate FiO2 05/18/25 01:22 98.1 91 18 148/92 98 Room Air* 0 21 05/18/25 00:56 98.1 85 16 151/97 96 Room Air 0 Medical Decision Making MDM Patient is a 54-year-old male with a past medical history of CAD/CABG who presented to the ER complaining of burning eyes, 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 Patient also stated that he was drink beers prior come to the hospital, stated that he drinks 2 cans of beers far. Patient denies fever, chills, chest pain. Physical/screening eye exam with lamp shows a central area of burning of the cornea. Tetracaine was applied prior examination which helps to relieve the burning sensation. Laboratory was performed it was positive for cocaine, marijuana, alcohol Started on IV hydration. Plan is to discharge home with a follow up with the home hospice aide. Ketorolac ophthalmic 0.5% 1 drop in each eye q.4 hours x3 days Procedure Procedure Dictation: Eye exam: Tetracycline applied to the eye B/L Fluorescein applied Patient has uptake of fluorescein in the central cornea bilateral. DX & DISP Disposition: Discharge Departure Impression: Primary Impression: Corneal abrasion Additional Impressions: Illicit drug use, Alcohol abuse, Cocaine abuse, Coronary artery disease Condition: Stable Additional Instructions: RETURN TO ER FOR ANY ACUTE OR WORSENING SYMPTOMS. FOLLOW-UP IN 1-2 DAYS WITH PRIMARY PROVIDER FOR RECHECK OF TODAY'S SYMPTOMS. Referrals: LAUREN MCKEE MD (PCP) Time of Disposition: 03:52 KIM KRAUSE MD May 18, 2025 01:44
[2025-05-18] MEDS: FLUORESCEIN SODIUM 1 STRIP STRIP OP SCH (01:46)
[2025-05-18] MEDS: TETRACAINE HCL 0.5% 4 ML OPHTH SOLN OP SCH (01:46)
[2025-05-18] MEDS: 0.9%NACL 1000ML 1,000 ML IV SCH (01:46)
[2025-05-18 01:51] LABS: APPEARANCE,URINE CLEAR (CLEAR); GLUCOSE, URINE (UA) NEGATIVE (NEGATIVE); LEUKOCYTE ESTERASE ,URINE NEGATIVE Leu/uL (NEGATIVE); NITRATE,URINE NEGATIVE (NEGATIVE); OCCULT BLOOD,URINE NEGATIVE (NEGATIVE)
[2025-05-18 01:52] LABS: ADD UA MICROSCOPIC NO
[2025-05-18 02:00] LABS: AMPHET/METH SCREEN,URINE NEGATIVE (NEGATIVE); BARBITURATE SCREEN, URINE NEGATIVE (NEGATIVE); CANNABINOID SCREEN,URINE POSITIVE (NEGATIVE); COCAINE SCREEN,URINE POSITIVE (NEGATIVE)
--- NOTE | 2025-05-18 04:23 | NUR ---
PT'S SISTER, JOSE MOHAN MADE AWARE OF PT READY TO BE DISCHARGED HOME. PER SISTER, SHE IS DRIVING FROM [facility]. DISCHARGE INSTRUCTIONS WILL BE GIVEN TO SISTER ONCE SHE IS HERE.
[2025-05-18 05:24] VITALS: BP 158/88; PULSE 91; RESP 18; TEMP 98.1; O2SAT 98
== END 2025-05-18 05:33 | disposition home or self-care (01) ==
LOC: EDH 00:55
DX: S05.02XA Injury of conjunctiva and corneal abrasion without foreign body, left eye, initial encounter (principal); S05.01XA Injury of conjunctiva and corneal abrasion without foreign body, right eye, initial encounter; I25.10 Atherosclerotic heart disease of native coronary artery without angina pectoris; E11.9 Type 2 diabetes mellitus without complications; E78.00 Pure hypercholesterolemia, unspecified; I10 Essential (primary) hypertension; F14.10 Cocaine abuse, uncomplicated; F10.10 Alcohol abuse, uncomplicated; Z95.1 Presence of aortocoronary bypass graft; Z79.899 Other long term (current) drug therapy; Z79.84 Long term (current) use of oral hypoglycemic drugs; Z79.82 Long term (current) use of aspirin; X58.XXXA Exposure to other specified factors, initial encounter; Y93.89 Activity, other specified; Y92.89 Other specified places as the place of occurrence of the external cause; Y99.8 Other external cause status
CPT/HCPCS: 99283; 96360; 96361; 84484; 80048; 83880; 80305; 85025; 36415; 81003; J7030